=== PATIENT | male | born 2000 | race Caucasian/White ===

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

== ENCOUNTER 2024-02-02 15:59 | Emergency (ER) | payer SELFPAY ==
--- NOTE | ~2024-02-02 | XR_ITS ---
EXAMINATION: XR LUMBAR SPINE CLINICAL INFORMATION: Pain, injury COMPARISON: None available. TECHNIQUE: Three views of the lumbosacral spine. FINDINGS: Straightening of lumbar lordosis. Lumbar vertebral bodies demonstrate normal height. Overall sagittal alignment is maintained. The intervertebral disc heights are normal. The posterior elements appear adequately aligned. The paraspinous soft tissues appear unremarkable. Bilateral sacroiliac joints are intact. XR/XR lumbar spine 2-3V IMPRESSION: No radiographic evidence of acute abnormality involving the lumbar spine. Electronically signed by: David Feng MD 02/02/2024 07:06 PM EDT
[2024-02-02 16:02] VITALS: BP 125/90; PULSE 88; O2SAT 100
[2024-02-02 16:37] VITALS: BP 119/80; PULSE 83; RESP 18; TEMP 36.9; O2SAT 98; BMI 36.5
--- NOTE | 2024-02-02 16:37 | ED_ITS ---
HPI - General Adult General Chief complaint: Back Pain/Injury Stated complaint: LOWER BACK PAIN Time Seen by Provider: 02/02/24 20:08 Source: patient Mode of arrival: ambulatory Limitations: no limitations History of Present Illness ED Provider: Mirna Iraheta PA-C HPI narrative: Patient is a 23 year old assigned male at with a history of MDD and asthma presenting to the emergency department today with low back pain. Patient states that he woke up with low back pain. Patient states that he isn't sure if he did anything but he is having low back pain that isn't getting better post ibuprofen. Patient denies any dizziness, lightheadedness, abdominal pain, nausea, vomiting, fever, chills, blurry vision, double vision, loss of vision, chest pain, difficulty breathing, shortness of breath, night sweats, pain with urination, increased urinary frequency, increased urinary urgency, blood in his urine or stool, syncope or a near syncopal episode, recent trauma or falls, bowel incontinence, bladder incontinence, or any other complaints at this time. Location: back Relieving factors: none Exacerbating factors: none Associated symptoms: denies other symptoms Treatments prior to arrival: NSAID Related Data Previous Rx's ?Medication ?Instructions ?Recorded albuterol sulfate 90 mcg/actuation 2 puff PO Q4-6H PRN wheezing 30 07/30/21 aerosol inhaler days #8.5 grams trazodone 50 mg tablet 50 mg PO BEDTIME #30 tabs 07/30/21 bupropion HCl 300 mg 24 hr tablet, 300 mg PO DAILY #30 tabs 01/01/22 extended release clonidine HCl 0.1 mg tablet 0.1 mg PO BID #60 tabs 01/01/22 olanzapine 15 mg tablet 15 mg PO DAILY #30 tabs 01/01/22 cyclobenzaprine 5 mg tablet 5 mg PO TID PRN pain 7 days #21 02/02/24 tabs prednisone 20 mg tablet 20 mg PO DAILY 7 days #7 tabs 02/02/24 Allergies Allergy/AdvReac Type Severity Reaction Status Date / Time No Known Allergies Allergy Verified 02/02/24 16:40 Review of Systems Constitutional: Constitutional: Reports no additional constitutional complaints, Denies chills, Denies fever(s) and Denies night sweats Eyes: Eyes: Reports no additional eye complaints, Denies blurry vision, Denies change in vision, Denies diplopia, Denies eye discharge, Denies loss of vision and Denies eye pain ENT: Denies dizziness Cardiovascular: Cardiovascular: Reports no additional cardiovascular complaints, Denies chest pain, Denies lightheadedness, Denies Loss of Consciousness and Denies dyspnea Respiratory: Respiratory: Reports no additional respiratory complaints and Denies dyspnea Gastrointestinal: Gastrointestinal: Reports no additional gastrointestinal complaints, Denies abdominal pain, Denies melena, Denies hematochezia, Denies change in bowel habits and Denies change in stool character Genitourinary: Genitourinary: Reports no additional male genitourinary complaints, Denies hematuria, Denies oliguria, Denies difficulty urinating, Denies dysuria, Denies urinary frequency, Denies urinary hesitancy, Denies urinary incontinence and Denies urinary urgency Musculoskeletal: Musculoskeletal: Reports no additional musculoskeletal complaints, Reports back pain, Denies numbness and Denies tingling Neurologic: Denies dizziness, Denies loss of vision, Denies numbness and Denies tingling Psychiatric: Psychiatric: Reports no additional psychiatric complaints Endocrine: Endocrine: Reports no additional endocrine complaints Hematologic/Lymphatic: Hematologic/Lymphatic: Reports no additional hematologic/lymphatic complaints Allergic/Immunologic: Allergic/Immunologic: Reports no additional allergic/immunologic complaints [facility] Past Medical History Attestation statement: The following information was validated with the patient. Source: old records reviewed and nursing notes reviewed Medical History Mild intermittent asthma Depression Surgical History History of knee surgery Family History Family History Mother No problems noted. Father History of mood disorder Social History Social History Housing: Apartment Alcohol intake: current Alcohol intake frequency: holidays/special occasions only Patient Tobacco Use Status: Never used Tobacco Substance Use Type: Marijuana Advance Directives: No Advance Directives Information Provided: No Do you have a plan to hurt others: No Plan Current occupational status: employed Physical Exam ED Vital Signs: Vital Signs - 24 hr 02/02/24 16:37 02/02/24 20:20 Temperature 98.5 F 98.5 F Pulse Rate 83 83 Respiratory Rate 18 18 Blood Pressure 119/80 119/80 Pulse Oximetry 98 98 Oxygen Delivery Method Room Air Room Air BMI result Body Mass Index 36.5 Const General: cooperative, no acute distress, alert and awake Nutritional Appearance: well nourished Orientation/consciousness: patient oriented x3 Limitations: no limitations HENMT Head: Yes normal to inspection and Yes atraumatic Ears: hearing grossly normal bilaterally and external ears normal General nose exam: Normal external nose present, no nasal discharge noted and no epistaxis Face and sinus: Yes normal facial exam, No abrasion and No laceration Mouth: Normal oral and palatal mucosa present, no drooling and no muffled voice Eyes General: appearance normal, both eyes and all related structures Periorbital: periorbital findings normal Eyelids: Yes eyelids normal Conjunctivae: conjunctivae normal Pupils: Equal, round and reactive pupils present EOM: EOMs intact bilaterally Neck Neck: Yes normal visual inspection, Yes full ROM and Yes no lymphadenopathy Chest Chest palpation & inspection: normal inspection of the chest Resp Effort & Inspection: normal respiratory effort and able to speak in complete sentences GI Inspection: Yes normal to inspection General: Yes no CVA tenderness Back/Spine/Pelvis Back: no CVA tenderness Cervical Spine: normal cervical lordosis and cervical ROM normal Thoracic/Lumbar Spine: thoracic and lumbar spine normal to inspection and thoraco-lumbar ROM normal Neuro General: patient oriented x3 and moves all extremities Cranial nerves: Yes Equal, round and reactive pupils present Cognition (Neuro): normal cognition Extrem General: Yes normal to inspection, Yes full ROM and Yes capillary refill normal Psych Appearance: grossly normal Mental Status: mental status grossly normal Affect: normal affect Attitude: cooperative Thought process: Normal thought process present Thought content: Normal thought content present Insight: Good insight present (Psych) Course Course Course Narrative: RME performed by Mirna Iraheta PA-C. Patient is a 23 year old assigned male at presenting to the emergency department with low back pain. Patient states that he woke up with low back pain. Detailed physical exam and review of systems are deferred to the [place] [employer] group leader. Imaging ordered. Patient placed back in the waiting room pending room availability and results. Medical Decision Making Medical Decision Making MDM Narrative: Patient is a 23 year old assigned male at with a history of asthma and MDD presenting to the emergency department today with low back pain. Patient's physical exam was unremarkable. Patient's lumbar x-ray showed no acute process. I explained my physical exam findings as well as all test results to the patient. I answered all questions asked by the patient. I stressed the importance of the patient taking his medication as directed (either prescribed or as the over the counter packaging recommends). I stressed the importance of the patient following up with his primary care provider. I stressed the importance of the patient returning to the emergency department immediately if his symptoms were to worsen or if he were to develop any dizziness, shortness of breath, difficulty breathing, chest pain, blurry vision, loss of vision, nausea, vomiting, abdominal pain, fever, chills, back pain, or any other complaints. Patient verbalized agreement and understanding with this treatment plan and discharge. Differential Diagnosis Differential Diagnoses: The differential diagnosis associated with the presentation includes Low back pain Muscle strain Muscle sprain Admission/Observation Consideration of admission/observation: Escalation of care including admission/observation considered Patient would have been admitted to the hospital had his work up had any findings where hospital admission was appropriate and his clinical presentation warranted hospital admission. Independent Interpretation I performed an independent interpretation of an: Plain X-Ray Interpretation: My interpretation is in agreement with the radiologist's impression of this imaging study. EXAMINATION: XR LUMBAR SPINE CLINICAL INFORMATION: Pain, injury COMPARISON: None available. TECHNIQUE: Three views of the lumbosacral spine. FINDINGS: Straightening of lumbar lordosis. Lumbar vertebral bodies demonstrate normal height. Overall sagittal alignment is maintained. The intervertebral disc heights are normal. The posterior elements appear adequately aligned. The paraspinous soft tissues appear unremarkable. Bilateral sacroiliac joints are intact. XR/XR lumbar spine 2-3V IMPRESSION: No radiographic evidence of acute abnormality involving the lumbar spine. Electronically signed by: David Feng MD 02/02/2024 07:06 PM EDT RP Dictated By: David Feng Signed By: Electronically signed by David Feng 02/02/24 190 Radiology Impression Discussion of test interpretation with radiology: I have reviewed the radiologist's reading. Prescription Management I considered prescription management with: Pain Medication (patient prescribed pain medication) Discharge Plan Discharge Clinical Impression: Low back pain Patient Disposition: Home, Self-Care Instructions: Acute Low Back Pain (ED) Additional Instructions: Follow up with your primary care provider. Return to the emergency department immediately if your symptoms worsen or if you develop any dizziness, shortness of breath, difficulty breathing, chest pain, blurry vision, loss of vision, nausea, vomiting, abdominal pain, fever, chills, back pain, or any other complaints. Prescriptions: New cyclobenzaprine 5 mg tablet 5 mg PO TID PRN (Reason: pain) 7 Days Qty: 21 0RF prednisone 20 mg tablet 20 mg PO DAILY 7 Days Qty: 7 0RF No Action bupropion HCl 300 mg tablet extended release 24 hr 300 mg PO DAILY Qty: 30 7RF clonidine HCl 0.1 mg tablet 0.1 mg PO BID Qty: 60 7RF olanzapine 15 mg tablet 15 mg PO DAILY Qty: 30 7RF albuterol sulfate 90 mcg/actuation HFA aerosol inhaler 2 puff PO Q4-6H PRN (Reason: wheezing) 30 Days Qty: 8.5 3RF trazodone 50 mg tablet 50 mg PO BEDTIME Qty: 30 0RF Rx Instructions: pt advised to start with a half a tab and may use up to a whole tab for sleep assistance associated with depression Referrals: [facility] [place] Family Medicine [Provider Group] (Call to establish and follow up with a primary care provider. If you already have a primary care provider, please follow up with them.) [facility] [place] Primary Care, [place] [Provider Group] (Call to establish and follow up with a primary care provider. If you already have a primary care provider, please follow up with them.) [facility] [Provider Group] (Call to establish and follow up with a primary care provider. If you already have a primary care provider, please follow up with them.) Interventions: ED Discharge Assessment Last Done: 02/02/24 20:20 Discharge Date/Time: 02/02/24 20:20 Print Language: Swedish
[2024-02-02 20:20] VITALS: BP 119/80; PULSE 83; RESP 18; TEMP 36.9; O2SAT 98
== END 2024-02-02 20:20 | disposition home or self-care (01) ==
PROVIDERS: Emergency Provider Internal Medicine
DX: M54.50 Low back pain, unspecified (principal); Z79.899 Other long term (current) drug therapy
CPT/HCPCS: 72100; 99282; 99283

== ENCOUNTER 2024-07-31 15:33 | Emergency (ER) | payer BC, SELFPAY ==
--- NOTE | ~2024-07-31 | CT_ITS ---
CLINICAL HISTORY: pain CT lumbar spine without contrast Comparison: None Findings: Normal vertebral body alignment. No acute fractures or dislocations. Minimal degenerative changes. No significant central canal or neural foraminal narrowing. Normal visualized abdominal contents. IMPRESSION: No acute findings. This document has been electronically signed by: Jaylene Barbosa MD on 07/31/2024 17:57:25
[2024-07-31 16:08] VITALS: BP 134/88; PULSE 92; O2SAT 97
[2024-07-31 16:09] VITALS: BP 133/71; PULSE 88; RESP 18; TEMP 37.3; O2SAT 98; BMI 33.1
--- NOTE | 2024-07-31 16:10 | ED_ITS ---
HPI - General Adult General Chief complaint: Back Pain/Injury Stated complaint: back pain Time Seen by Provider: 07/31/24 16:08 Source: patient Limitations: no limitations History of Present Illness ED Provider: Jesenia Pichardo PA-C HPI narrative: 24-year-old male with a history of morbid obesity, anxiety, depression and asthma presents with acute onset low back pain. 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 The pain is nonradiating, is constant, and has increased in severity. Pain worse with movement. Denies weakness of lower extremity, paresthesia, urinary retention or bowel incontinence. Patient denies new activity, heavy lifting or other preceding trauma. Denies history of kidney stones, dysuria, hematuria, nausea or vomiting with the onset of pain. No fevers. Related Data Previous Rx's ?Medication ?Instructions ?Recorded albuterol sulfate 90 mcg/actuation 2 puff PO Q4-6H PRN wheezing 30 07/30/21 aerosol inhaler days #8.5 grams trazodone 50 mg tablet 50 mg PO BEDTIME #30 tabs 07/30/21 bupropion HCl 300 mg 24 hr tablet, 300 mg PO DAILY #30 tabs 01/01/22 extended release clonidine HCl 0.1 mg tablet 0.1 mg PO BID #60 tabs 01/01/22 olanzapine 15 mg tablet 15 mg PO DAILY #30 tabs 01/01/22 cyclobenzaprine 5 mg tablet 5 mg PO TID PRN pain 7 days #21 02/02/24 tabs prednisone 20 mg tablet 20 mg PO DAILY 7 days #7 tabs 02/02/24 methocarbamol 750 mg tablet 1,500 mg (2 x 750 mg) PO Q8H PRN 07/31/24 pain, moderate #20 tabs Allergies Allergy/AdvReac Type Severity Reaction Status Date / Time No Known Allergies Allergy Verified 07/31/24 16:20 Review of Systems Review of Systems: Yes all other systems are reviewed and are negative Constitutional: Constitutional: Denies fatigue and Denies fever(s) Cardiovascular: Cardiovascular: Denies chest pain and Denies dyspnea Respiratory: Respiratory: Denies cough and Denies dyspnea Gastrointestinal: Gastrointestinal: Denies abdominal pain, Denies nausea and Denies vomiting Genitourinary: Genitourinary: Denies hematuria, Denies dysuria and Denies flank pain Musculoskeletal: Musculoskeletal: Reports back pain, Denies muscle weakness, Denies numbness, Denies radiating pain into limb and Denies tingling Neurologic: Denies numbness and Denies tingling Endocrine: Endocrine: Denies fatigue PMFSH Past Medical History Attestation statement: The following information was validated with the patient. Medical History Mild intermittent asthma Depression Surgical History History of knee surgery Family History Family History Mother No problems noted. Father History of mood disorder Social History Social History Housing: Apartment Alcohol intake: current Alcohol intake frequency: holidays/special occasions only Patient Tobacco Use Status: Never used Tobacco Substance Use Type: Marijuana Advance Directives: No Advance Directives Information Provided: No Current occupational status: employed Physical Exam ED Vital Signs: Vital Signs - 24 hr 07/31/24 16:09 Temperature 99.1 F Pulse Rate 88 Respiratory Rate 18 Blood Pressure 133/71 Pulse Oximetry 98 Oxygen Delivery Method Room Air BMI result Body Mass Index 33.1 Const Other: Alert appears uncomfortable Orientation/consciousness: patient oriented x3 Resp Effort & Inspection: normal respiratory effort Cardio Other: Normal peripheral perfusion Skin Other: Warm dry no rash Neuro General: patient oriented x3, no focal motor deficits and CN's II-XI intact bilaterally Psych Other: Cooperative Medical Decision Making Medical Decision Making MDM Narrative: 24-year-old male with a history of morbid obesity, anxiety, depression and asthma presents with acute onset low back pain. 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 The pain is nonradiating, is constant, and has increased in severity. Pain worse with movement. Denies weakness of lower extremity, paresthesia, urinary retention or bowel incontinence. Patient denies new activity, heavy lifting or other preceding trauma. Denies history of kidney stones, dysuria, hematuria, nausea or vomiting with the onset of pain. No fevers. Problem: Obesity History: Per patient I have considered the following differential diagnoses: Lumbar strain, compression fracture, lumbar radiculopathy, cauda equina, renal colic Plan: This is an atypical presentation, patient does not have a concise mechanism of injury. He does perform heavy lifting on a regular basis with the his work-related activities, perhaps this is delayed onset lumbar strain. Doubtful to be a compression fracture given his age. He is not having radicular symptoms, and he also has no red flag signs symptoms concerning for cord compression. Thought about renal colic, however his pain is very focal to the central low back, he is not having any GI or symptoms. My plan is to order imaging. The patient received 100 mcg of fentanyl, 15 mg of Toradol, and 1000 mg of IV Tylenol prior to arrival via EMS. He is comfortable at this point. I have independently reviewed the following tests: CT lumbar spine:Findings: Normal vertebral body alignment. No acute fractures or dislocations. Minimal degenerative changes. No significant central canal or neural foraminal narrowing. Normal visualized abdominal contents. IMPRESSION: No acute findings. This document has been electronically signed by: Jaylene Barbosa MD on 07/31/2024 17:57:25 Discharge Plan Discharge Clinical Impression: Lumbar strain Patient Disposition: Home, Self-Care Instructions: Low Back Strain (ED), Lower Back Exercises (ED), Core Strengthening Exercises (ED) Additional Instructions: The CT scan was negative for any acute injury. You are being treated for low back strain. See home care instructions. Use the methocarbamol as needed for discomfort, this is a muscle relaxant. To note this medication will cause drowsiness do not drive or operate machinery while taking the medication. You should also be using an anti-inflammatory such as ibuprofen, this can be purchased [id number], take 600 mg every 6 hours with food. Follow up with your primary care provider as needed. Prescriptions: New methocarbamol 750 mg tablet 1,500 mg PO Q8H PRN (Reason: pain, moderate) Qty: 20 0RF No Action bupropion HCl 300 mg tablet extended release 24 hr 300 mg PO DAILY Qty: 30 7RF clonidine HCl 0.1 mg tablet 0.1 mg PO BID Qty: 60 7RF olanzapine 15 mg tablet 15 mg PO DAILY Qty: 30 7RF cyclobenzaprine 5 mg tablet 5 mg PO TID PRN (Reason: pain) 7 Days Qty: 21 0RF prednisone 20 mg tablet 20 mg PO DAILY 7 Days Qty: 7 0RF albuterol sulfate 90 mcg/actuation HFA aerosol inhaler 2 puff PO Q4-6H PRN (Reason: wheezing) 30 Days Qty: 8.5 3RF trazodone 50 mg tablet 50 mg PO BEDTIME Qty: 30 0RF Rx Instructions: pt advised to start with a half a tab and may use up to a whole tab for sleep assistance associated with depression Stand Alone Forms: Work/School Release Print Language: [place] Citizen
[2024-07-31 18:15] VITALS: BP 133/71; PULSE 88; RESP 18; TEMP 37.3; O2SAT 98
== END 2024-07-31 18:15 | disposition home or self-care (01) ==
PROVIDERS: Emergency Provider Emergency Medicine
DX: S39.012A Strain of muscle, fascia and tendon of lower back, initial encounter (principal); X50.9XXA Other and unspecified overexertion or strenuous movements or postures, initial encounter; M54.50 Low back pain, unspecified; Y93.F9 Activity, other caregiving; Y92.89 Other specified places as the place of occurrence of the external cause; Y99.0 Civilian activity done for income or pay
CPT/HCPCS: 72131; 99282; 99284

== ENCOUNTER → 2024-07-31 16:17 | Outpatient (BNV) | payer BC, SELFPAY | PROVIDERS: Emergency Provider Emergency Medicine; Visit Provider Radiology Diagnostic Radiology | DX: M54.50 Low back pain, unspecified (principal) | CPT/HCPCS: 72131 ==